=== PATIENT | male | born 1950 | race Caucasian/White ===

== ENCOUNTER → 2016-11-16 | Outpatient (CLI) | payer BC ==
[~2016-11-16] VITALS: Ht 180.3 cm; Wt 124.3 kg
[~2016-11-16] MED LIST: AMLO5TAB2 PO; ASP81CT; ATOR20TA66 PO; CALC625T PO; CATHETER FLUSH 10 ML SYR IV PRN; CHRO1TAB7 PO; CLOP75TA PO; CQ10 PO; CYAN100021 INJ; DOCU100T7 PO; ERGO400C PO; FURO20TA4 PO; KCL10CCR PO; MAGN400T6 PO; MTF500T PO; MTP25TSR PO; MULT1CAP27 PO; RAMI10TA PO; SIMV40TA2 PO; antibiotic; water pill
[2016-11-16 09:55] VITALS: BP 179/96
--- NOTE | 2016-11-17 09:20 | STRESS TEST ---
PROCEDURE PHYSICIAN: ERA ESPITIA DATE OF PROCEDURE: 11/16/2016 EXERCISE NUCLEAR STRESS TEST REPORT: ATTENDING PHYSICIAN: Danielle Fallon. DIAGNOSES: 1. Coronary artery disease. 2. Department of transportation annual evaluation. PROCEDURE DETAILS: The patient was brought to the stress lab after informed consent was taken. Exercise stress test was performed according to the [facility] protocol. Baseline EKG showed sinus rhythm with right bundle branch block. Initial heart rate was 50 BPM. Initial blood pressure was 154/61 mmHg. The patient exercised for 8 minutes and 13 seconds and achieved 9.9 METs. Maximum heart rate was 151 bpm which is 96% of maximum predicted heart rate response. Peak blood pressure was 243/90 mmHg. 9.29 mCi of Myoview were given for rest imaging and 29.5 mCi of Myoview were given for stress imaging. TID 0.81. EF: 83%. There is a very small apical moderate reversible defect. Gaited images show normal wall motion. This defect is likely an artifact. SSS 0, SDS 0, SRS 0. CONCLUSION: 1. Exercise stress test is negative for ischemia. 2. Hypertensive response to exercise. 3. Good functional capacity. 4. Very small apical reversible defect which is likely an artifact. 5. Please also note that there was no chest pain, EKG changes or arrhythmias noted during stress test. Few PVCs were noted during exercise. Job ID: [id number] Dictated Date: 11/16/2016 14:49:37 Loom Inspector Date: 11/17/2016 09:13:52 / tana
== END ==
LOC: CARD 06:39
PROVIDERS: ATTEND Physician Assistant
DX: I25.10 Atherosclerotic heart disease of native coronary artery without angina pectoris (principal); I65.23 Occlusion and stenosis of bilateral carotid arteries; I10 Essential (primary) hypertension; E78.2 Mixed hyperlipidemia
CPT/HCPCS: 78452; 93017; 93306; 93325

== ENCOUNTER 2020-04-13 05:47 | Outpatient (RCR) | payer BC ==
[~2020-04-13 05:47] MED LIST changes: -CATHETER FLUSH 10 ML SYR IV PRN
== END 2020-04-13 15:00 | disposition home or self-care (01) ==
LOC: PREOP 05:47
PROVIDERS: ATTEND Specialist
DX: Z01.818 Encounter for other preprocedural examination (principal)

== ENCOUNTER 2020-05-04 05:42 | Outpatient (RCR) | payer BC ==
[~2020-05-04] VITALS: Ht 180.3 cm; Wt 122.3 kg
[2020-05-04] MEDS ORDERED: CHOL400T PO (12:09)
[2020-05-04] MEDS ORDERED: APIX5TAB PO (12:09)
[2020-05-04] MEDS ORDERED: CALC625T77 PO (12:09)
[2020-05-04] MEDS ORDERED: MAGN400T7 PO (12:09)
[2020-05-04] MEDS ORDERED: UBID50TA3 PO (12:09)
[2020-05-04] MEDS ORDERED: AMLO-251 PO (12:09)
[2020-05-04] MEDS ORDERED: METF-397 PO (12:09)
[2020-05-04] MEDS ORDERED: FURO20TA4 PO (12:09)
[2020-05-04] MEDS ORDERED: MULT-567 PO (12:09)
[2020-05-04] MEDS ORDERED: POTA10CA43 PO (12:09)
[2020-05-04] MEDS ORDERED: ATOR10TA66 PO (12:09)
[2020-05-04] MEDS ORDERED: RAMI10CA69 PO (12:09)
[2020-05-04] MEDS ORDERED: SITA25TA5 PO (12:09)
[2020-05-04] MEDS ORDERED: DAPA10TA PO (12:09)
[2020-05-04] MEDS ORDERED: HYDR25TA4 PO (12:09)
== END 2020-05-04 12:13 | disposition home or self-care (01) ==
LOC: PREOP 05:42
PROVIDERS: ATTEND Specialist
DX: Z01.818 Encounter for other preprocedural examination (principal)

== ENCOUNTER 2020-05-07 06:03 | Day surgery (SDC) | payer BC ==
[~2020-05-07] VITALS: Ht 180.3 cm; Wt 122.3 kg
[~2020-05-07 06:03] MED LIST changes: +AMLO-251 PO; +APIX5TAB PO; +ATOR10TA66 PO; +CALC625T77 PO; +CHOL400T PO; +DAPA10TA PO; +HYDR25TA4 PO; +MAGN400T7 PO; +METF-397 PO; +MULT-567 PO; +POTA10CA43 PO; +RAMI10CA69 PO; +SITA25TA5 PO; +UBID50TA3 PO
[2020-05-07] MEDS ORDERED: TIMOLOL MALEATE 0.5% 5 ML (TIMOPTIC) BTL OU PRN (06:15)
[2020-05-07] MEDS ORDERED: LIDOCAINE PF 1% 2 ML VIAL IR PRN (06:15)
[2020-05-07] MEDS ORDERED: MOXIFLOXACIN OPHTH SOLN 5 MG/ML 0.3 ML SYRINGE OP ONE (06:15)
[2020-05-07] MEDS ORDERED: POVIDONE (BETADINE) OPHTH SOLN 5% 30 ML OP ONE (06:15)
[2020-05-07] MEDS: TETRACAINE 0.5% OPHTH SOLN 4 ML BTL (SINGLE DOSE ONLY) OU PRN ×4 (06:24→06:49)
[2020-05-07 06:26] VITALS: BP 145/84
[2020-05-07] MEDS: PHENYLEPHRINE 10% OPHTH (NEO-SYN) 5 ML BTL OU SCH ×3 (06:36→06:49)
[2020-05-07] MEDS: TROPICAMIDE 1% OPH SOLN (MYDRIACYL) 15 ML BTL OP SCH ×3 (06:36→06:49)
[2020-05-07] MEDS ORDERED: MIDAZOLAM 2 MG/2 ML (VERSED) VIAL ONE (06:47)
--- NOTE | 2020-05-07 07:01 | Ophthalmologist Pre-Op Note ---
Pre-Operative Progress Note H&P Reviewed The H&P was reviewed, patient examined and no changes noted. Date H&P Reviewed: May 07, 2020 Time H&P Reviewed: 06:55 Pre-Op Dx Cataract, Right Eye DIVYA VILA MD May 07, 2020 07:01
--- NOTE | 2020-05-07 07:18 | Ophthalmology Operative Report ---
Cataract removal/placement IOL PREOPERATIVE DIAGNOSIS: Cataract Right Eye POSTOPERATIVE DIAGNOSIS: Cataract Right Eye PROCEDURE: Cataract removal and placement of posterior chamber implant, right eye SURGEON: Earl Vila ANESTHESIA: Topical with sedation COMPLICATIONS: None ESTIMATED BLOOD LOSS: Minimal DESCRIPTION OF PROCEDURE: After proper informed consent was obtained, the patient, a 69 male, was taken to the Operating Room and the right eye was anesthetized with tetracaine. The right eye was then prepped and draped in the usual manner. A wire lid speculum was placed. A paracentesis was made at the left hand position. Preservative free lidocaine was injected into the anterior chamber followed by viscoelastic. A clear corneal incision was made in the temporal position. A capsulorrhexis was preformed and the central nuclear and cortical material were removed. The posterior capsule was polished and Rj 22.5 AU00T0 IOL was placed into the capsular bag. The residual viscoelastic was aspirated and balanced saline solution was injected into the anterior chamber. Moxifloxacin was injected into the anterior chamber. The wound was checked and found to be water tight. The patient tolerated the procedure well without complications. EARL VILA MD May 07, 2020 07:17
[2020-05-07 07:30] VITALS: BP 133/79
[2020-05-07] MEDS ORDERED: acetaZOLAMIDE ER 500 MG CAP (DIAMOX SEQUELS) PO ONE (07:30)
--- NOTE | 2020-05-07 11:10 | Anesthesia-General Post-Op ---
MAC Patient Condition Mental Status/LOC: Same as Preop Cardiovascular: Satisfactory Nausea/Vomiting: Absent Respiratory: Satisfactory Pain: Controlled Complications: Absent Post Op Complications Complications None Follow Up Care/Instructions Patient Instructions None needed. Anesthesiology Discharge Order Discharge Order Patient is doing well, no complaints, stable vital signs, no apparent adverse anesthesia problems. No complications reported per nursing. ACE FRANKLIN CRNA May 07, 2020 11:10
== END 2020-05-07 07:30 | disposition home or self-care (01) ==
LOC: SDC 06:03
PROVIDERS: ATTEND Specialist
DX: E11.36 Type 2 diabetes mellitus with diabetic cataract (principal); H25.11 Age-related nuclear cataract, right eye; I10 Essential (primary) hypertension; G47.11 Idiopathic hypersomnia with long sleep time; E78.00 Pure hypercholesterolemia, unspecified; Z79.84 Long term (current) use of oral hypoglycemic drugs; Z79.899 Other long term (current) drug therapy; Z88.0 Allergy status to penicillin
CPT/HCPCS: 66984; 82962; V2632

== ENCOUNTER 2020-05-18 05:32 | Outpatient (RCR) | payer BC | END 2020-05-18 11:06 | disposition home or self-care (01) | LOC: PREOP 05:32 | PROVIDERS: ATTEND Specialist | DX: Z01.818 Encounter for other preprocedural examination (principal) ==

== ENCOUNTER 2020-05-21 06:00 | Day surgery (SDC) | payer BC ==
[~2020-05-21] VITALS: Ht 180.3 cm; Wt 121.4 kg
[2020-05-21 06:10] VITALS: BP 122/87
[2020-05-21] MEDS ORDERED: MOXIFLOXACIN OPHTH SOLN 5 MG/ML 0.3 ML SYRINGE OP ONE (06:15)
[2020-05-21] MEDS ORDERED: POVIDONE (BETADINE) OPHTH SOLN 5% 30 ML OP ONE (06:15)
[2020-05-21] MEDS ORDERED: LIDOCAINE PF 1% 2 ML VIAL IR PRN (06:15)
[2020-05-21] MEDS ORDERED: TIMOLOL MALEATE 0.5% 5 ML (TIMOPTIC) BTL OU PRN (06:15)
[2020-05-21] MEDS: TETRACAINE 0.5% OPHTH SOLN 4 ML BTL (SINGLE DOSE ONLY) OU PRN ×4 (06:27→06:45)
[2020-05-21] MEDS: PHENYLEPHRINE 10% OPHTH (NEO-SYN) 5 ML BTL OU SCH ×3 (06:35→06:45)
[2020-05-21] MEDS: TROPICAMIDE 1% OPH SOLN (MYDRIACYL) 15 ML BTL OP SCH ×3 (06:35→06:45)
[2020-05-21] MEDS ORDERED: MIDAZOLAM 2 MG/2 ML (VERSED) VIAL ONE (06:52)
--- NOTE | 2020-05-21 06:58 | Ophthalmologist Pre-Op Note ---
Pre-Operative Progress Note H&P Reviewed The H&P was reviewed, patient examined and no changes noted. Date H&P Reviewed: May 21, 2020 Time H&P Reviewed: 06:58 Pre-Op Dx Cataract, Left Eye DIVYA VILA MD May 21, 2020 06:58
--- NOTE | 2020-05-21 07:17 | Ophthalmology Operative Report ---
Cataract removal/placement IOL PREOPERATIVE DIAGNOSIS: Cataract Left Eye POSTOPERATIVE DIAGNOSIS: Cataract Left Eye PROCEDURE: Cataract removal and placement of posterior chamber implant, left eye SURGEON: Earl Vila ANESTHESIA: Topical with sedation COMPLICATIONS: None ESTIMATED BLOOD LOSS: Minimal DESCRIPTION OF PROCEDURE: After proper informed consent was obtained, the patient, a 69 male, was taken to the Operating Room and the left eye was anesthetized with tetracaine. The left eye was then prepped and draped in the usual manner. A wire lid speculum was placed. A paracentesis was made at the left hand position. Preservative free lidocaine was injected into the anterior chamber followed by viscoelastic. A clear corneal incision was made in the temporal position. A capsulorrhexis was preformed and the central nuclear and cortical material were removed. The posterior capsule was polished and an Rj 22.5 AU00T0 was placed into the capsular bag. The residual viscoelastic was aspirated and balanced saline solution was injected into the anterior chamber. Moxifloxacin was injected into the anterior chamber. The wound was checked and found to be water tight. The patient tolerated the procedure well without complications. EARL VILA MD May 21, 2020 07:17
[2020-05-21 07:25] VITALS: BP 138/65
[2020-05-21] MEDS ORDERED: acetaZOLAMIDE ER 500 MG CAP (DIAMOX SEQUELS) PO ONE (07:30)
--- NOTE | 2020-05-21 09:27 | Anesthesia-General Post-Op ---
MAC Patient Condition Mental Status/LOC: Same as Preop Cardiovascular: Satisfactory Nausea/Vomiting: Absent Respiratory: Satisfactory Pain: Controlled Complications: Absent Post Op Complications Complications None Follow Up Care/Instructions Patient Instructions None needed. Anesthesiology Discharge Order Discharge Order Patient is doing well, no complaints, stable vital signs, no apparent adverse anesthesia problems. No complications reported per nursing. GAYLE JUAREZ CRNA May 21, 2020 09:27
== END 2020-05-21 07:25 | disposition home or self-care (01) ==
LOC: SDC 06:00
PROVIDERS: ATTEND Specialist
DX: E11.36 Type 2 diabetes mellitus with diabetic cataract (principal); H25.12 Age-related nuclear cataract, left eye; E78.00 Pure hypercholesterolemia, unspecified; I10 Essential (primary) hypertension; I48.91 Unspecified atrial fibrillation; G47.33 Obstructive sleep apnea (adult) (pediatric); Z79.84 Long term (current) use of oral hypoglycemic drugs; Z79.899 Other long term (current) drug therapy; Z88.0 Allergy status to penicillin
CPT/HCPCS: 66984; 82962; V2632